=== PATIENT | female | born 1950 | race Caucasian/White ===

== ENCOUNTER 2017-01-31 13:59 | Outpatient (CLI) | payer MEDICARE | END 2017-01-31 14:00 | disposition home or self-care (01) | DX: S42.351G Displaced comminuted fracture of shaft of humerus, right arm, subsequent encounter for fracture with delayed healing (principal); M19.011 Primary osteoarthritis, right shoulder ==

== ENCOUNTER 2018-12-13 11:56 | Outpatient (CLI) | payer MEDICARE ==
--- NOTE | 2018-12-14 15:38 | XRAY Report ---
Reason: PAIN AFTER FALL Procedure Date: 12/13/2018 Accession Number: [id number] / [id number] Procedure: XR - Humerus RT CPT Code: FULL RESULT: EXAM: RIGHT HUMERUS RADIOGRAPHY EXAM DATE: 12/13/2018 12:26 PM. CLINICAL HISTORY: PAIN AFTER FALL. COMPARISON: HUMERUS RT 04/20/2016 12:30 PM UPPER EXTREMITY RIGHT W/O 01/31/2017 2:18 PM. TECHNIQUE: 2 views. FINDINGS: Bones: Again seen is an oblique fracture of the proximal humeral diaphysis. There is absence of bony bridging. The appearance appears without change since 01/31/2017 CT. There is flattening of the humeral head, also unchanged. Joints: No dislocation or subluxation. Soft Tissues: Normal. No soft tissue swelling. IMPRESSION: 1. Chronic findings of the right humerus. 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 Chronic appearing flattening of the humeral head. [facility]
--- NOTE | 2018-12-14 15:45 | XRAY Report ---
Reason: PAIN AFTER FALL Procedure Date: 12/13/2018 Accession Number: [id number] / [id number] Procedure: XR - Hip w/Pelvis 2-3V LT CPT Code: FULL RESULT: EXAM: LEFT HIP RADIOGRAPHY EXAM DATE: 12/13/2018 12:26 PM. CLINICAL HISTORY: PAIN AFTER FALL. COMPARISON: None. TECHNIQUE: 2 views. FINDINGS: Bones: Normal. No fractures or bone lesion. Joints: Normal. No dislocation. The hip joint space is preserved. Soft Tissues: Normal. No soft tissue swelling. IMPRESSION: Negative [facility]
== END 2018-12-13 11:57 | disposition home or self-care (01) ==
LOC: DI 11:56
PROVIDERS: ATTEND Internal Medicine
DX: G89.11 Acute pain due to trauma (principal); M79.601 Pain in right arm; M25.552 Pain in left hip

== ENCOUNTER 2021-10-29 08:00 | Outpatient (CLI) | payer MEDICARE ==
[2021-10-29 15:48] LABS: MUDS CUTOFF CONCENTRATIONS CUTOFF CONC BELOW:
[2021-10-29 16:14] LABS: COCAINE SCREEN URINE NEGATIVE (NEGATIVE); METHAMPHETAMINES SCREEN, URINE NEGATIVE (NEGATIVE); OPIATE SCREEN, URINE POSITIVE (NEGATIVE); THC CANNABINOID SCREEN, URINE NEGATIVE (NEGATIVE)
[2021-10-29 16:15] LABS: AMPHETAMINE SCREEN,URINE NEGATIVE (NEGATIVE); BARBITURATE SCREEN,UR POSITIVE (NEGATIVE); BENZODIAZEPINES SCREEN, URINE NEGATIVE (NEGATIVE); METHADONE SCREEN, URINE NEGATIVE (NEGATIVE); OXYCODONE SCREEN, URINE NEGATIVE (NEGATIVE); PROPOXYPHENE SCREEN, URINE NEGATIVE (NEGATIVE); TRICYCLIC ANTIDEPRESSANT,URINE NEGATIVE (NEGATIVE)
== END 2021-10-29 23:59 | disposition home or self-care (01) ==
LOC: LAB 08:00
PROVIDERS: ATTEND Internal Medicine
DX: Z79.891 Long term (current) use of opiate analgesic (principal)
CPT/HCPCS: 80306

== ENCOUNTER 2023-10-27 11:21 | Outpatient (CLI) | payer MEDICARE ==
[2023-10-27 15:24] LABS: ALBUMIN/GLOBULIN RATIO 2.5 (1.0-2.2); ALKALINE PHOSPHATASE 82 IU/L (42-121); ALT ALANINE AMINOTRANSFERASE 40 IU/L (10-60); AST ASPARTATE AMINOTRANSFERASE 31 IU/L (10-42); BASOPHILS % (AUTO) 0.3 %; BILIRUBIN,TOTAL 0.5 mg/dL (0.2-1.0); BUN - BLOOD UREA NITROGEN 22 mg/dL (6-20); CALCIUM 10.2 mg/dL (8.5-10.3); CARBON DIOXIDE - CO2 29 mmol/L (21-32); CHLORIDE 105 mmol/L (101-111); CHOL/HDL RATIO 3.6 (<4.4); CHOLESTEROL 333 mg/dL; CREATININE 0.6 mg/dL (0.6-1.3); EOSINOPHILS # (AUTO) 0.1 10^3/uL (0.0-0.7); EOSINOPHILS % (AUTO) 1.3 %; GFR - MDRD 98 (>89); GLUCOSE 95 mg/dL (74-104); HCT - HEMATOCRIT 45.5 % (37.0-47.0); HDL CHOLESTEROL 92 mg/dL; HGB - HEMOGLOBIN 14.3 g/dL (12.0-16.0); LDL CHOLESTEROL,CALCULATED 223 mg/dL; LDL/HDL RATIO 2.4 (<4.4); LYMPHOCYTES # (AUTO) 1.5 10^3/uL (1.5-3.5); LYMPHOCYTES % (AUTO) 20.4 %; MEAN CORPUSCULAR HEMOGLOBIN 35.6 pg (27.0-31.0); MEAN CORPUSCULAR HGB CONC 31.4 g/dL (32.0-36.0); MEAN CORPUSCULAR VOLUME 113.2 fL (81.0-99.0); MEAN PLATELET VOLUME 10.7 fL (7.9-10.8); MONOCYTES # (AUTO) 0.8 10^3/uL (0.0-1.0); MONOCYTES % (AUTO) 11.3 %; NEUTROPHILS # (AUTO) 4.7 10^3/uL (1.5-6.6); NEUTROPHILS % (AUTO) 66.4 %; PLT - PLATELET COUNT 327 10^3/uL (130-450); POTASSIUM 3.5 mmol/L (3.5-4.5); RED BLOOD COUNT 4.02 10^6/uL (4.20-5.40); RED CELL DISTRIBUTION WIDTH 13.9 % (12.0-15.0); SODIUM 142 mmol/L (135-145); TRIGLYCERIDES 89 mg/dL (48-352); VLDL CHOLESTEROL 18 mg/dL; WHITE BLOOD COUNT 7.1 x10^3/uL (4.8-10.8)
[2023-10-27 15:37] LABS: THYROID STIMULATING HORMONE 0.74 uIU/mL (0.34-5.60)
[2023-10-27 15:59] LABS: PLATELET ESTIMATE, MANUAL NORMAL (130-450,000) (NORMAL); PLATELET MORPHOLOGY NORMAL APPEARANCE (NORMAL); RBC MORPHOLOGY (MULTIPLE) 3+ MACROCYTOSIS (NORMAL); SLIDE REVIEW? Indicated
== END 2023-10-27 11:22 | disposition home or self-care (01) ==
LOC: LAB.S 11:21
PROVIDERS: ATTEND Internal Medicine
DX: Z00.00 Encounter for general adult medical examination without abnormal findings (principal); H40.9 Unspecified glaucoma; E78.5 Hyperlipidemia, unspecified; C43.9 Malignant melanoma of skin, unspecified; G43.909 Migraine, unspecified, not intractable, without status migrainosus; M81.0 Age-related osteoporosis without current pathological fracture; L29.9 Pruritus, unspecified; Z12.12 Encounter for screening for malignant neoplasm of rectum; Z12.11 Encounter for screening for malignant neoplasm of colon; Z79.899 Other long term (current) drug therapy
CPT/HCPCS: 36415; 80053; 80061; 81599; 82306; 82607; 82746; 83721; 84443; 85025